=== PATIENT | female | born 1995 | race American Indian/Alaskan Native ===

== ENCOUNTER 2017-05-23 10:52 | Emergency (ER) | payer SELFPAY ==
[2017-05-23 11:10] VITALS: BP 117/71
[2017-05-23] MEDS ORDERED: TORADOL IM ONE (14:19)
[2017-05-23] MEDS ORDERED: TESSALON PERLES PO ONE (14:19)
--- NOTE | 2017-05-23 14:28 | Emergency Department Report ---
- General Chief Complaint: Headache Stated Complaint: HEADACHE Time Seen by Provider: 05/23/17 14:10 Source: patient Mode of arrival: Ambulatory Limitations: No Limitations - History of Present Illness Initial Comments: This is a 21-year-old female nontoxic, well nourished in appearance, no acute signs of distress presents to the ED with c/o of intermittent headache, productive cough, facial frontal pain, rhinorrhea/nasal congestion x2 weeks. Patient describes productive cough as yellow mucus production. Patient describes headache as aching in the frontal region with a gradual onset. Patient denies thunderclap headache. Stated headache is subsided with darkness and aggravated with bright lights and noise. Patient denies any head trauma. Denies any fever, chills, nausea, vomiting, chest pain, shortness of breathe, numbness, tingling, stiff neck. Patient stated has allergies to codeine. Denies any PMH. Deacon recent travels, long car rides, or recent hospital stays. MD Complaint: cough, rhinorrhea, nasal congestion, sinus pain -: Gradual, week(s) (2) Severity: mild Severity scale (0 -10): 8 Quality: aching Consistency: intermittent Improves With: nothing Worsens With: nothing Associated Symptoms: denies other symptoms, headache, rhinorrhea, nasal congestion, cough. denies: fever, chills, myalgias, diaphoresis, sore throat, stiff neck, chest pain, shortness of breath, abdominal pain, nausea, vomiting, diarrhea, dysuria, rash, confusion, right sweats, weight loss, epistaxis, hoarseness, ear pain Treatments Prior to Arrival: none - Related Data Previous Rx's Medication Instructions Recorded Last Taken Type Benzonatate [Tessalon Perle] 100 mg PO Q8H #20 capsule 05/23/17 Unknown Rx Butalb/Acetamin/Caff 50-325-40 1 tab PO Q6HR PRN #20 tab 05/23/17 Unknown Rx [Fioricet] Levofloxacin [Levaquin TAB] 750 mg PO QDAY #5 tablet 05/23/17 Unknown Rx Allergies Allergy/AdvReac Type Severity Reaction Status Date / Time codeine Allergy Vomiting Verified 05/23/17 11:08 ED Review of Systems ROS: Stated complaint: HEADACHE Other details as noted in HPI Constitutional: denies: chills, fever Eyes: denies: eye pain, eye discharge, vision change ENT: denies: ear pain, throat pain Respiratory: cough. denies: shortness of breath, wheezing Cardiovascular: denies: chest pain, palpitations Endocrine: no symptoms reported Gastrointestinal: denies: abdominal pain, nausea, diarrhea Genitourinary: denies: urgency, dysuria, discharge Musculoskeletal: denies: back pain, joint swelling, arthralgia Skin: denies: rash, lesions Neurological: denies: headache, weakness, paresthesias Psychiatric: denies: anxiety, depression Hematological/Lymphatic: denies: easy bleeding, easy bruising ED Past Medical Hx - Past Medical History Previous Medical History?: No - Surgical History Past Surgical History?: No - Social History Smoking Status: Never Smoker Substance Use Type: Marijuana - Medications Home Medications: Home Medications Medication Instructions Recorded Confirmed Last Taken Type Benzonatate [Tessalon Perle] 100 mg PO Q8H #20 capsule 05/23/17 Unknown Rx Butalb/Acetamin/Caff 50-325-40 1 tab PO Q6HR PRN #20 tab 05/23/17 Unknown Rx [Fioricet] Levofloxacin [Levaquin TAB] 750 mg PO QDAY #5 tablet 05/23/17 Unknown Rx ED Physical Exam - General Limitations: No Limitations General appearance: alert, in no apparent distress - Head Head exam: Present: atraumatic, normocephalic, normal inspection - Eye Eye exam: Present: normal appearance, PERRL, EOMI. Absent: scleral icterus, conjunctival injection, nystagmus, periorbital swelling, periorbital tenderness Pupils: Present: normal accommodation - ENT ENT exam: Present: normal exam, normal orophraynx, mucous membranes moist, TM's normal bilaterally, normal external ear exam - Neck Neck exam: Present: normal inspection, full ROM. Absent: tenderness, meningismus, lymphadenopathy, thyromegaly - Respiratory Respiratory exam: Present: normal lung sounds bilaterally. Absent: respiratory distress, wheezes, rales, rhonchi, stridor, chest wall tenderness, accessory muscle use, decreased breath sounds, prolonged expiratory - Cardiovascular Cardiovascular Exam: Present: regular rate, normal rhythm, normal heart sounds. Absent: bradycardia, tachycardia, irregular rhythm, systolic murmur, diastolic murmur, rubs, gallop - GI/Abdominal GI/Abdominal exam: Present: soft, normal bowel sounds. Absent: distended, tenderness, guarding, rebound, rigid, diminished bowel sounds - Rectal Rectal exam: Present: deferred - Extremities Exam Extremities exam: Present: normal inspection, full ROM, normal capillary refill. Absent: tenderness, pedal edema, joint swelling, calf tenderness - Back Exam Back exam: Present: normal inspection, full ROM. Absent: tenderness, CVA tenderness (R), CVA tenderness (L), muscle spasm, paraspinal tenderness, vertebral tenderness, rash noted - Neurological Exam Neurological exam: Present: alert, oriented X3, CN II-XII intact, normal gait, reflexes normal - Expanded Neurological Exam Expanded Patient oriented to: Present: person, place, time Cranial nerves: EOM's Intact: Normal, Gag Reflex: Normal, Tongue Deviation: Normal, Nystagmus: Normal, Facial Sensation: Normal, Facial Palsy with Forehead Movement: Normal, Facial Palsy without Forehead Movement: Normal Cerebellar function: Finger to Nose: Normal, Heel to Morales: Normal, Romberg: Normal Upper motor neuron: Coleman Neglect: Normal, Pronator Drift: Normal, Babinski Sign : Normal, Sensory Extinction: Normal Sensory exam: Upper Extremity Light Touch: Normal, Upper Extremity Pin Prick: Normal, Upper Extremity Temperature: Normal, UE 2 Point Discrimination: Normal, Lower Extremity Light Touch: Normal, Lower Extremity Pin Prick: Normal, Lower Extremity Temperature: Normal, LE 2 Point Discrimination: Normal Motor strength exam: RUE: 5, LUE: 5, RLE: 5, LLE: 5 DTR: bicep (R): 2+, bicep (L): 2+, tricep (R): 2+, tricep (L): 2+, knee (R): 2+ , knee (L): 2+, ankle (R): 2+, ankle (L): 2+ Best Eye Response (Neto): (4) open spontaneously Best Motor Response (Neto): (6) obeys commands Best Verbal Response (Neto): (5) oriented Neto Total: 15 - Psychiatric Psychiatric exam: Present: normal affect, normal mood - Skin Skin exam: Present: warm, dry, intact, normal color. Absent: rash ED Course Vital Signs 05/23/17 11:08 Temperature 98.2 F Pulse Rate 68 Respiratory 20 Rate Blood Pressure 117/71 O2 Sat by Pulse 98 Oximetry - Reevaluation(s) Reevaluation #1: 05/23/17 14:31 Patient is speaking in full sentences with no signs of distress noted. ED Medical Decision Making - Medical Decision Making This is a 21-year-old female that presents with upper resp infection and sinusitis vs headache and UTI. UA elevated of WBC, RBC, and leukocytes. Patient was examined by me and patient is stable. Chest xray has obtained and dictated by radiologist with normal exam. Patient was notified of xay results with no further questions noted by the patient. Patient received Tylenol for headache which patient stated headache has subsided and resolved. Patient is d/ c with augmentin and Tessalon Perles. Patient was instructed to Follow-up with a primary care doctor in 3-5 days or if symptoms worsen and continue return to emergency room as soon as possible. At time time of discharge, the patient does not seem toxic or ill in appearance. No acute signs of distress noted. Patient agrees to discharge treatment plan of care. No further questions noted by the patient. Critical care attestation.: If time is entered above; I have spent that time in minutes in the direct care of this critically ill patient, excluding procedure time. ED Disposition Clinical Impression: Upper respiratory infection Qualifiers: URI type: unspecified URI Qualified Code(s): J06.9 - Acute upper respiratory infection, unspecified Headache Qualifiers: Headache type: unspecified Headache chronicity pattern: unspecified pattern Intractability: not intractable Qualified Code(s): R51 - Headache Sinusitis Qualifiers: Sinusitis location: frontal Chronicity: acute Recurrence: non-recurrent Qualified Code(s): J01.10 - Acute frontal sinusitis, unspecified UTI (urinary tract infection) Qualifiers: Urinary tract infection type: site unspecified Hematuria presence: without hematuria Qualified Code(s): N39.0 - Urinary tract infection, site not specified Disposition: DC-01 TO HOME OR SELFCARE Is pt being admited?: No Does the pt Need Aspirin: No Condition: Stable Instructions: Benzonatate (By mouth), Butalbital/Aspirin/Caffeine (By mouth), Upper Respiratory Infection (ED), Acute Headache (ED) Additional Instructions: Follow-up with a primary care doctor in 3-5 days or if symptoms worsen and continue return to emergency room as soon as possible. Prescriptions: Benzonatate [Tessalon Perle] 100 mg PO Q8H #20 capsule Butalb/Acetamin/Caff 50-325-40 [Fioricet] 1 tab PO Q6HR PRN #20 tab PRN Reason: Headache Levofloxacin [Levaquin TAB] 750 mg PO QDAY #5 tablet Referrals: PRIMARY CAREMD [Primary Care Provider] - 3-5 Days BJ GEORGE MD [Staff Physician] - 3-5 Days [facility] [Outside] - 3-5 Days [facility] [Outside] - 3-5 Days Forms: Work/School Release Form(ED)
[2017-05-23] MEDS ORDERED: TYLENOL PO ONE (14:55)
[2017-05-23 15:17] LABS: Bacteria,Urine 1+ /HPF (Negative); Bilirubin,Urine NEG (Negative); Blood,Urine NEG (Negative); Ketones,Urine NEG (Negative); Leukocyte Esterase,Urine LG (Negative); Mucus,Urine 2+ /HPF; Nitrite,Urine NEG (Negative); Protein,Urine <15 mg/dL mg/dL (Negative); Urobilinogen,Urine < 2.0 mg/dL (<2.0)
--- NOTE | 2017-05-23 16:25 | XRay Report ---
FINAL REPORT EXAM: XR CHEST ROUTINE 2V HISTORY: cough TECHNIQUE: Frontal and lateral views of the chest. PRIORS: None currently available. FINDINGS: Cardiac silhouette is within normal limits. There is no effusion. There is no pneumothorax. There is no consolidation. There are no suspicious osseous lesions. IMPRESSION: No acute cardiopulmonary findings.
== END 2017-05-23 17:52 | disposition home or self-care (01) ==
LOC: ED 10:52
DX: J06.9 Acute upper respiratory infection, unspecified (principal); J01.10 Acute frontal sinusitis, unspecified; N39.0 Urinary tract infection, site not specified; R51 Headache; F12.10 Cannabis abuse, uncomplicated; Z88.6 Allergy status to analgesic agent
CPT/HCPCS: 71020; 81001; 81025; 99284; J1885

== ENCOUNTER 2017-06-28 09:45 | Emergency (ER) | payer OTHER ==
[2017-06-28] MEDS ORDERED: TYLENOL PO ONE (10:02)
--- NOTE | 2017-06-28 10:06 | Emergency Department Report ---
Chief Complaint: Extremity Injury, Upper Stated Complaint: RIGHT SHOULDER PAIN Time Seen by Provider: 06/28/17 10:03 - HPI History of Present Illness: 21 female states pain to r shoulder/clavicle after slipped out of bed this am, fell to ground about 4 ft landing onto r shoulder. no loc no head injury no neck or back pain no abd c/o, no other injuries, no numbness or weakness, here for eval r shoulder pain since fell out of bed this am. denies missed periods. - ROS Review of Systems: complete ros otherwise neg., no numbness no tingling no weakness no other c/o. no neck or back pain, no loc no abd or chest c/o. - Exam Vital Signs: Vital Signs 06/28/17 09:52 Temperature 98.2 F Pulse Rate 77 Respiratory 18 Rate Blood Pressure 117/64 O2 Sat by Pulse 100 Oximetry Physical Exam: vss, head atnc, neck nt, abd soft nt, lungs cta, ext: exam limited 2/2 pt guarding, tenderness to ant shoulder r w/ decresed rom, distally nvi, ? deformity at mid to lateral clavicle, tenderness to ac jt. neuro strength =b, sensory intact. good cr. MSE screening note: Focused history and physical exam performed. Due to findings the following was ordered: ED Medical Decision Making - Medical Decision Making Patient was seen by me for MS E she will be sent main ed for further evaluation , x-ray and pain control were instituted patient has no other complaints except the shoulder pain at this time. Further disposition will be main ED vital signs were stable no complaints were voiced. ED Disposition for MSE Condition: Stable
[2017-06-28] MEDS ORDERED: MOTRIN PO ONE (10:22)
[2017-06-28] MEDS ORDERED: NORCO 5/325 PO ONE (10:22)
--- NOTE | 2017-06-28 10:28 | XRay Report ---
RIGHT SHOULDER: Trauma, pain. Routine views demonstrate normal bony and soft tissue structures with normal joint alignment of the shoulder. IMPRESSION: Normal study.
--- NOTE | 2017-06-28 10:34 | Emergency Department Report ---
HPI - General Chief Complaint: Extremity Injury, Upper Time Seen by Provider: 06/28/17 10:03 - [facility] HPI: Room 19 The patient is a 21-year-old female presented with a chief complaint of right shoulder pain. The patient states 2 hours ago she fell off of a very high bed onto the floor landing on her right upper extremity. Patient complains of pain in the right shoulder. Patient denies loss of consciousness. The patient currently gives her pain a score of 10/10 Location: Right shoulder Duration: [See above] Quality: Pain Severity:10/10 Modifying factors: Movement increases pain Context: [see above] Mode of transportation: [not driving] ED Past Medical Hx - Past Medical History Previous Medical History?: No - Surgical History Past Surgical History?: No - Family History Family history: no significant - Social History Smoking Status: Never Smoker Substance Use Type: Alcohol (occasional), Marijuana - Medications Home Medications: Home Medications Medication Instructions Recorded Confirmed Last Taken Type Benzonatate [Tessalon Perle] 100 mg PO Q8H #20 capsule 05/23/17 Unknown Rx Butalb/Acetamin/Caff 50-325-40 1 tab PO Q6HR PRN #20 tab 05/23/17 Unknown Rx [Fioricet] Levofloxacin [Levaquin TAB] 750 mg PO QDAY #5 tablet 05/23/17 Unknown Rx HYDROcodone/APAP 5-325 [[place] 1 - 2 each PO Q6HR PRN #14 tablet 06/28/17 Unknown Rx 5/325] Ibuprofen [Motrin] 800 mg PO Q8HR PRN #20 tablet 06/28/17 Unknown Rx ED Review of Systems ROS: Stated complaint: RIGHT SHOULDER PAIN Other details as noted in HPI Musculoskeletal: arthralgia, myalgia Physical Exam - Physical Exam Vital Signs: Vital Signs 06/28/17 09:52 Temperature 98.2 F Pulse Rate 77 Respiratory 18 Rate Blood Pressure 117/64 O2 Sat by Pulse 100 Oximetry Physical Exam: GENERAL: The patient is well-developed well-nourished female lying on stretcher not appearing to be in acute distress. [] HEENT: Normocephalic. Atraumatic. NECK: Supple. Trachea midline CHEST/LUNGS: Clear to auscultation. There is no respiratory distress noted. HEART/CARDIOVASCULAR: Regular. There is no tachycardia. There is no gallop rub or murmur. 2+ right radial pulse ABDOMEN: Abdomen is soft, nontender. Patient has normal bowel sounds. There is no abdominal distention. SKIN: There is no rash. There is no edema. There is no diaphoresis. NEURO: The patient is awake, alert, and oriented. The patient is cooperative. The patient has no focal neurologic deficits. The patient has normal speech. Right flotation tender helper 5+/5. MUSCULOSKELETAL: There is tenderness to palpation of the right shoulder. There is limitation of the range of motion of the right shoulder. ED Course Vital Signs 06/28/17 09:52 Temperature 98.2 F Pulse Rate 77 Respiratory 18 Rate Blood Pressure 117/64 O2 Sat by Pulse 100 Oximetry ED Medical Decision Making - Radiology Data Radiology results: image reviewed (right shoulder x-ray) interpreted by me: Right shoulder x-ray-no acute fracture, no dislocation. Discussed with radiologist Dr. Golden RIGHT SHOULDER: Trauma, pain. Routine views demonstrate normal bony and soft tissue structures with normal joint alignment of the shoulder. IMPRESSION: Normal study. Transcribed By: [facility] Dictated By: SHRUTHI GOLDEN MD Electronically Authenticated By: SHRUTHI GOLDEN MD Signed Date/Time: 06/28/17 1011 DD/ 1010 TD/TT: 06/28/17 1011 - Differential Diagnosis right shoulder dislocation, right shoulder fracture, rotator cuff injury, r Critical care attestation.: If time is entered above; I have spent that time in minutes in the direct care of this critically ill patient, excluding procedure time. ED Disposition Clinical Impression: Contusion of right shoulder, Right shoulder pain Disposition: - TO HOME OR SELFCARE Is pt being admited?: No Does the pt Need Aspirin: No Condition: Stable Instructions: Rotator Cuff Injury (ED) Additional Instructions: Return to the emergency department immediately should you develop worsening symptoms, fever, inability to tolerate food or liquid or any other concerns. Prescriptions: HYDROcodone/APAP 5-325 [[place] 5/325] 1 - 2 each PO Q6HR PRN #14 tablet PRN Reason: Pain Ibuprofen [Motrin] 800 mg PO Q8HR PRN #20 tablet PRN Reason: Pain Referrals: ELVIA ARNETT MD [Staff Physician] - 3-5 Days (Dr. Arnett is an orthopedic surgeon. Please follow-up with him for further evaluation) Time of Disposition: 10:36
[2017-06-28 11:31] VITALS: BP 108/70
== END 2017-06-28 11:10 | disposition home or self-care (01) ==
LOC: ED 09:45
DX: S40.011A Contusion of right shoulder, initial encounter (principal); W06.XXXA Fall from bed, initial encounter; Y93.89 Activity, other specified; Y92.89 Other specified places as the place of occurrence of the external cause; Y99.8 Other external cause status